=== PATIENT | female | born 1995 | race Asian ===

== ENCOUNTER 2024-07-19 11:50 | Inpatient (IN) ==
[2024-07-19] MEDS ORDERED: LIDOCAINE 1% LOCAL 20 ML VIAL INFIL PRN (12:58)
[2024-07-19] MEDS ORDERED: OXYTOCIN 30 UNITS/NSS 30 UNITS/500 ML BAG IV PRN (12:58)
[2024-07-19 13:39] LABS: Hematocrit (blood only) 32.9 % (37.0-47.0); Mean Corpuscular Hemoglobin 28.3 pg (25.0-34.0); Mean Corpuscular Hgb Conc 33.4 g/dL (32.0-36.0); Mean Corpuscular Volume 84.6 fL (80.0-100.0); Mean Platelet Volume 10.7 fL (9.4-12.4); Platelet Count 255 K/uL (130-400); RDW Coefficient of Variation 14.2 % (11.5-14.5); RDW Standard Deviation 43.3 fL (36.4-46.3); Red Blood Count 3.89 M/uL (4.20-5.40); White Blood Count 7.01 K/ul (4.8-10.8)
[2024-07-19] MEDS: LACTATED RINGER'S 1,000 ML IV PRN (16:38)
--- NOTE | 2024-07-19 16:39 | History & Physical Report ---
Date of Service July 19, 2024 Assessment & Plan (1) Post term over 40 weeks: (2) PROM (premature rupture of membranes): (3) Gestational diabetes: Plan admit, iv, labs. plan pitocin induction given no labor after prom. fhts categ 1. pt open to pain mgmt options and will let us know. Admission and Anticipated Discharge Date Admission Date: July 19, 2024 History of Present Illness Chief Complaint: prom Primary Care Provider: NO PCP 29yo at 40+wks ega presents to LD after PROM at term, confirmed in office. Patient with prom at 7am. Was seen in office and was confirmed rom but cx closed. Since that time has felt more period type cramps. No real pain. PNC c/b 1. GDM diet controlled. PNL rhpos, ri, gbs neg OBH: g1 GYNH: nl paps no stds Allergies Allergy/AdvReac Type Severity Reaction Status Date / Time No Known Allergies Allergy Verified 07/19/24 12:33 Home Medications Medication Instructions Recorded Confirmed Type acetone (urine) test (Ketone Urine #50 ea 05/03/24 07/19/24 Rx Test strips) blood sugar diagnostic (OneTouch #150 ea 05/03/24 07/19/24 Rx Verio test strips) blood-glucose meter (OneTouch #1 ea 05/03/24 07/19/24 Rx Verio Reflect Meter) lancets 33 gauge (OneTouch Delica #150 ea 05/03/24 07/19/24 Rx Plus Lancet) calcium carbonate 500 mg PO DAILY 07/19/24 07/19/24 History cholecalciferol (vitamin D3) 25 20 mcg PO DAILY 07/19/24 07/19/24 History mcg (1,000 unit) tablet (Vitamin D3) vits no.124-ferrous fum 1 tab PO DAILY 07/19/24 07/19/24 History 27 mg iron-folic acid 800 mcg tablet ( Vitamin) Patient History Medical History History of chicken pox Surgical History No history of previous surgery Family History Mother Anemia Sister Anemia Grandmother (Maternal) Leukemia Denies family history of Ovarian cancer Breast cancer Colorectal cancer Social History Smoking Status: Never smoker Do You Dip or Chew Tobacco: No; Hx Alcohol Use: No Hx Substance Use: No Preferred Language: Kiswahili Communication Ability: Effective [employer] Required: No Beliefs That Will Affect Care: None marital status: marital status details: Charles Sultana (30) [phone] Current Living Situation: Spouse Current Living Situation Comment: lives with spouse, no pets current occupational status: employed 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 [employer] Feels Safe at Home: Yes Safety Concerns: Feels Safe At This Time Assistive Devices: None Review of Systems as per Subjective / HPI Physical Exam Constitutional: WD/WN, vitals as above Respiratory: normal respiratory effort, lungs clear to auscultation Cardiovascular: Rate/Rhythm: regular rate and regular rhythm Gastrointestinal (Abdomen): soft gravid nt efw 7-8# Musculoskeletal: no edema nontender calves Neurologic: grossly normal Psychiatric: A+Ox3, euthymic affect Genitourinary: OB Exam Abdomen: + vertex (by US) Manual OB Exam: + cervical dilation (1-2cm), + cervical effacement 50% and + station -2 OB Exam Monitor Tracing: + external FHT monitor used, + external uterine monitor used (q2-5), + category I and + normal FHT variability Results & Data Vital Signs (Past 12 Hours) Vital Signs Temp Pulse Resp BP 07/19/24 15:10 97.7 F 18 07/19/24 15:09 65 07/19/24 15:09 100/61 07/19/24 12:11 98.1 F 20 07/19/24 12:08 82 103/69 Coding Level of Care Code None Diagnoses Post term over 40 weeks O48.0 PROM (premature rupture of membranes) O42.90 Gestational diabetes O24.419
[2024-07-19] MEDS: OXYTOCIN 30 UNITS/NSS 30 UNITS/500 ML BAG IV PRN (16:44)
--- NOTE | 2024-07-19 21:22 | Labor Progress Brief Note ---
Date of Service July 19, 2024 Subjective feeling more pain with ctx. Assessment & Plan (1) Post term over 40 weeks: (2) PROM (premature rupture of membranes): (3) Gestational diabetes: Plan good cx change. c/w pit. bsgs in active labor. fhts categ 1. Admission and Anticipated Discharge Date Admission Date: July 19, 2024 Physical Exam Constitutional: WD/WN, vitals as above Genitourinary: Manual OB Exam: + cervical dilation (2-3cm), + cervical effacement 70% and + station (posterior) -2 OB Exam Monitor Tracing: + external FHT monitor used, + external uterine monitor used (q2-4 pit at 15), + category I and + normal FHT variability Results & Data Vital Signs (Past 12 Hours) Vital Signs Temp Pulse Resp BP 07/19/24 20:01 78 07/19/24 20:01 101/59 L 07/19/24 19:05 97.9 F 20 07/19/24 19:04 73 07/19/24 19:04 105/71 07/19/24 18:48 77 07/19/24 18:48 107/71 07/19/24 17:47 78 07/19/24 17:47 113/71 07/19/24 17:45 16 07/19/24 17:45 97.9 F 16 07/19/24 15:10 97.7 F 18 07/19/24 15:09 65 07/19/24 15:09 100/61 07/19/24 12:11 98.1 F 20 07/19/24 12:08 82 103/69 Coding Level of Care Code None Diagnoses Post term over 40 weeks O48.0 PROM (premature rupture of membranes) O42.90 Gestational diabetes O24.419
[2024-07-19] MEDS ORDERED: diphenhydrAMINE 50 MG/ML VIAL IV PRN (22:03)
[2024-07-19] MEDS ORDERED: LIDOCAINE 2% MPF LOCAL 5 ML VIAL EPI PRN (22:03)
[2024-07-19] MEDS ORDERED: ePHEDrine sulfate 50 MG/ML AMP IV PRN (22:03)
[2024-07-19] MEDS ORDERED: SODIUM CHLORIDE 0.9% PF INJ 10 ML VIAL EPI PRN (22:03)
[2024-07-19] MEDS ORDERED: NALBUPHINE HCL INJ 10 MG/ML AMP IV PRN (22:03)
[2024-07-19] MEDS ORDERED: NALOXONE HCL 0.4 MG/1 ML VIAL/CARP IV PRN (22:03)
[2024-07-19] MEDS ORDERED: NALOXONE HCL 1 MG in SODIUM CHLORIDE 0.9% 1,000 ML IV PRN (22:03)
[2024-07-19] MEDS ORDERED: BUPIVACAINE 0.25% PF 30 ML VIAL EPI PRN (22:03)
[2024-07-19] MEDS ORDERED: ROPIVACAINE 0.5% PF 5 MG/ML 20 ML VIAL EPI PRN (22:03)
[2024-07-19] MEDS ORDERED: fentaNYL citrate PF 100 MCG/2 ML VIAL EPI PRN (22:03)
[2024-07-19] MEDS ORDERED: ONDANSETRON INJ 2 MG/ML 2 ML VIAL IV PRN (22:03)
--- NOTE | 2024-07-19 22:06 | Anesthesiology Consultation ---
Date of Service July 19, 2024 Assessment & Plan (1) Encounter for pre-operative examination: Chart Review Chart Review: Patient NOT seen in Pre Admission Testing and Acceptable Risk for Labor Epidural Consults Requested none History Height/Weight Height: 5 ft 3 in Weight: 64.41 kg Allergies Allergy/AdvReac Type Severity Reaction Status Date / Time No Known Allergies Allergy Verified 07/19/24 12:33 Medications Home Medications Medication Instructions Recorded Confirmed Last Taken acetone (urine) test (Ketone Urine #50 ea 05/03/24 07/19/24 Unknown Test strips) blood sugar diagnostic (OneTouch #150 ea 05/03/24 07/19/24 Unknown Verio test strips) blood-glucose meter (OneTouch #1 ea 05/03/24 07/19/24 Unknown Verio Reflect Meter) lancets 33 gauge (OneTouch Delica #150 ea 05/03/24 07/19/24 Unknown Plus Lancet) calcium carbonate 500 mg PO DAILY 07/19/24 07/19/24 07/18/24 15:00 cholecalciferol (vitamin D3) 25 20 mcg PO DAILY 07/19/24 07/19/24 07/18/24 15:00 mcg (1,000 unit) tablet (Vitamin D3) vits no.124-ferrous fum 1 tab PO DAILY 07/19/24 07/19/24 07/19/24 10:00 27 mg iron-folic acid 800 mcg tablet ( Vitamin) Active Medications Generic Name Dose Route Start Last Admin Trade Name Freq PRN Reason Stop Dose Admin Lactated Ringer's 1,000 mls @ 125 mls/hr 07/19/24 12:58 07/19/24 22:12 Lr IV 07/20/24 12:57 999 mls/hr .Q8H PRN Administration L&D Protocol Protocol Oxytocin 30 units in 500 mls @ 15 mls/hr 07/19/24 16:14 07/19/24 20:45 Pitocin 30 Units/Nss IV 07/21/24 16:13 0.9 units/hr .Q24H PRN 15 mls/hr Labor Induction/Augmentation Titration Protocol 0.9 UNITS/HR Past Medical History Medical History (Updated 07/19/24 @ 22:06 by Jacobo Velazquez MD) Encounter for pre-operative examination History of chicken pox Exercise / Class Metabolic Activity II 4-5 Yardwork/Stairs/Walk up hill Past Family History Family History Mother Anemia Sister Anemia Grandmother (Maternal) Leukemia Denies family history of Ovarian cancer Breast cancer Colorectal cancer Past Surgical History Surgical History No history of previous surgery Past Anesthesia History No Hx of Anesthesia Complications and No Family Hx of Anesthesia Complications Social History Smoking Status: Never smoker Do You Dip or Chew Tobacco: No Hx Alcohol Use: No Hx Substance Use: No Physical Exam Vital Signs Last Vital Signs Temp 36.8 C 07/19/24 21:30 Pulse 72 07/19/24 22:27 Resp 20 07/19/24 19:05 BP 111/71 07/19/24 22:27 Pulse Ox 100 07/19/24 22:26 Testing Laboratory Results 07/19/24 13:15 07/19/24 13:04 POC Glucose 108 H
[2024-07-19] MEDS: fentANYL 2 MCG/ML BUPIVacaine 0.125%-NSS 100ML BAG EPI PRN (22:31)
[2024-07-19] MEDS: BUPIVACAINE 0.25% PF 30 ML VIAL EPI STA (22:31)
[2024-07-19] MEDS: LIDOCAINE 2%/EPINEPHRINE 1:200,000 20 ML PF EPI STA (22:31)
[2024-07-19] MEDS: fentaNYL citrate PF 100 MCG/2 ML VIAL EPI STA (22:31)
[2024-07-19] MEDS: LIDOCAINE 2%/EPINEPHRINE 1:200,000 20 ML PF ONE (22:49)
[2024-07-19] MEDS: SODIUM CHLORIDE 0.9% PF INJ 10 ML VIAL ONE (22:49)
[2024-07-19] MEDS: fentaNYL citrate PF 100 MCG/2 ML VIAL ONE (22:50)
[2024-07-19] MEDS: fentANYL 2 MCG/ML BUPIVacaine 0.125%-NSS 100ML BAG ONE (22:50)
[2024-07-19] MEDS: BUPIVACAINE 0.25% PF 30 ML VIAL ONE (22:50)
--- NOTE | 2024-07-20 00:24 | Labor Progress Brief Note ---
Date of Service July 20, 2024 Subjective came to evaluate pt due to decels noted when doing strip review. deep variable decels x 9min. on arrival in room, pt in knee chest, ivf bolus going, o2 applied and pit off. Fhts improved. Assessment & Plan (1) Post term over 40 weeks: (2) PROM (premature rupture of membranes): Plan will need to allow for in utero resuscitation. if late decels persist will need to proceed to c/s,couple made aware. if deep variables persist, likely cannot restart pitocin to advance labor. IUPC placed and mvu's already inadequate. Admission and Anticipated Discharge Date Admission Date: July 19, 2024 Physical Exam Constitutional: WD/WN, vitals as above Genitourinary: Manual OB Exam: + cervical dilation 4 cm, + cervical effacement (75%) and + station (posterior) -2 OB Exam Monitor Tracing: + external FHT monitor used, + intra-uterine pressure catheter used (iupc placed. ), + category II (deep variables at first x 9-10min), + category III (late decels x 3 ctx now with min variability. ) and + late decelerations present Results & Data Vital Signs (Past 12 Hours) Vital Signs Temp Pulse Resp BP Pulse Ox 07/20/24 00:16 74 99/58 L 100 07/20/24 00:11 69 100 07/20/24 00:06 63 98 07/20/24 00:01 67 104/68 100 07/19/24 23:56 100 07/19/24 23:56 69 07/19/24 23:51 100 07/19/24 23:51 66 07/19/24 23:46 100 07/19/24 23:46 84 07/19/24 23:46 68 07/19/24 23:46 102/56 L 07/19/24 23:41 100 07/19/24 23:41 77 07/19/24 23:36 100 07/19/24 23:36 70 07/19/24 23:31 100 07/19/24 23:31 81 07/19/24 23:30 73 07/19/24 23:30 90/56 L 07/19/24 23:26 100 07/19/24 23:26 72 07/19/24 23:21 100 07/19/24 23:21 61 07/19/24 23:17 65 07/19/24 23:17 95/55 L 07/19/24 23:16 100 07/19/24 23:16 66 07/19/24 23:11 100 07/19/24 23:11 81 07/19/24 23:06 100 07/19/24 23:06 64 07/19/24 23:01 100 07/19/24 23:01 69 07/19/24 22:56 100 07/19/24 22:56 70 07/19/24 22:54 95 H 07/19/24 22:54 101/66 07/19/24 22:52 83 07/19/24 22:52 107/73 07/19/24 22:51 100 07/19/24 22:51 76 07/19/24 22:46 100 07/19/24 22:46 69 07/19/24 22:44 69 07/19/24 22:44 111/71 07/19/24 22:42 70 07/19/24 22:42 106/66 07/19/24 22:41 100 07/19/24 22:41 69 07/19/24 22:40 68 07/19/24 22:40 106/64 07/19/24 22:38 75 07/19/24 22:38 100/64 07/19/24 22:36 100 07/19/24 22:36 73 07/19/24 22:36 92 H 07/19/24 22:36 98/63 L 07/19/24 22:34 74 07/19/24 22:34 101/71 07/19/24 22:32 76 07/19/24 22:32 100/64 07/19/24 22:31 100 07/19/24 22:31 80 07/19/24 22:30 72 07/19/24 22:30 101/68 07/19/24 22:27 72 07/19/24 22:27 111/71 07/19/24 22:26 100 07/19/24 22:26 70 07/19/24 22:21 100 07/19/24 22:21 79 07/19/24 22:16 100 07/19/24 22:16 71 07/19/24 22:11 100 07/19/24 22:11 74 07/19/24 21:30 98.2 F 07/19/24 21:30 70 07/19/24 21:30 121/83 07/19/24 20:01 78 07/19/24 20:01 101/59 L 07/19/24 19:05 97.9 F 20 07/19/24 19:04 73 07/19/24 19:04 105/71 07/19/24 18:48 77 07/19/24 18:48 107/71 07/19/24 17:47 78 07/19/24 17:47 113/71 07/19/24 17:45 16 07/19/24 17:45 97.9 F 16 07/19/24 15:10 97.7 F 18 07/19/24 15:09 65 07/19/24 15:09 100/61 Coding Level of Care Code None Diagnoses Post term over 40 weeks O48.0 PROM (premature rupture of membranes) O42.90
--- NOTE | 2024-07-20 00:48 | Labor Progress Brief Note ---
Date of Service July 20, 2024 Subjective pt comfortable. Assessment & Plan (1) Post term over 40 weeks: (2) PROM (premature rupture of membranes): Plan fhts now categ 1, option to restart pitocin vs. c/s and pt prefers former, which i rec to try. iupc now in place to guide pitocin. if by 1am fhts still categ 1 will restart pit. Admission and Anticipated Discharge Date Admission Date: July 19, 2024 Physical Exam Constitutional: WD/WN, vitals as above Genitourinary: OB Exam Monitor Tracing: + external FHT monitor used, + external uterine monitor used (irreg), + category I and + normal FHT variability (spont accels) Results & Data Vital Signs (Past 12 Hours) Vital Signs Temp Pulse Resp BP Pulse Ox 07/20/24 00:45 100/58 L 07/20/24 00:41 68 100 07/20/24 00:36 76 100 07/20/24 00:31 66 100 07/20/24 00:30 60 94/54 L 07/20/24 00:26 76 100 07/20/24 00:21 96 H 100 07/20/24 00:16 74 99/58 L 100 07/20/24 00:11 69 100 07/20/24 00:06 63 98 07/20/24 00:01 67 104/68 100 07/19/24 23:56 100 07/19/24 23:56 69 07/19/24 23:51 100 07/19/24 23:51 66 07/19/24 23:46 100 07/19/24 23:46 84 07/19/24 23:46 68 07/19/24 23:46 102/56 L 07/19/24 23:41 100 07/19/24 23:41 77 07/19/24 23:36 100 07/19/24 23:36 70 07/19/24 23:31 100 07/19/24 23:31 81 07/19/24 23:30 73 07/19/24 23:30 90/56 L 07/19/24 23:26 100 07/19/24 23:26 72 07/19/24 23:21 100 07/19/24 23:21 61 07/19/24 23:17 65 07/19/24 23:17 95/55 L 07/19/24 23:16 100 07/19/24 23:16 66 07/19/24 23:11 100 07/19/24 23:11 81 07/19/24 23:06 100 07/19/24 23:06 64 07/19/24 23:01 100 07/19/24 23:01 69 07/19/24 22:56 100 07/19/24 22:56 70 07/19/24 22:54 95 H 07/19/24 22:54 101/66 07/19/24 22:52 83 07/19/24 22:52 107/73 07/19/24 22:51 100 07/19/24 22:51 76 07/19/24 22:46 100 07/19/24 22:46 69 07/19/24 22:44 69 07/19/24 22:44 111/71 07/19/24 22:42 70 07/19/24 22:42 106/66 07/19/24 22:41 100 07/19/24 22:41 69 07/19/24 22:40 68 07/19/24 22:40 106/64 07/19/24 22:38 75 07/19/24 22:38 100/64 07/19/24 22:36 100 07/19/24 22:36 73 07/19/24 22:36 92 H 07/19/24 22:36 98/63 L 07/19/24 22:34 74 07/19/24 22:34 101/71 07/19/24 22:32 76 07/19/24 22:32 100/64 07/19/24 22:31 100 07/19/24 22:31 80 07/19/24 22:30 72 07/19/24 22:30 101/68 07/19/24 22:27 72 07/19/24 22:27 111/71 07/19/24 22:26 100 07/19/24 22:26 70 07/19/24 22:21 100 07/19/24 22:21 79 07/19/24 22:16 100 07/19/24 22:16 71 07/19/24 22:11 100 07/19/24 22:11 74 07/19/24 21:30 98.2 F 07/19/24 21:30 70 07/19/24 21:30 121/83 07/19/24 20:01 78 07/19/24 20:01 101/59 L 07/19/24 19:05 97.9 F 20 07/19/24 19:04 73 07/19/24 19:04 105/71 07/19/24 18:48 77 07/19/24 18:48 107/71 07/19/24 17:47 78 07/19/24 17:47 113/71 07/19/24 17:45 16 07/19/24 17:45 97.9 F 16 07/19/24 15:10 97.7 F 18 07/19/24 15:09 65 07/19/24 15:09 100/61 Coding Level of Care Code None Diagnoses Post term over 40 weeks O48.0 PROM (premature rupture of membranes) O42.90
--- NOTE | 2024-07-20 05:36 | Labor Progress Brief Note ---
Date of Service July 20, 2024 Subjective comfortable. Assessment & Plan (1) Post term over 40 weeks: (2) PROM (premature rupture of membranes): (3) Gestational diabetes: Plan discusssed with couple that although cx has changed, remote from delivery, with pit at 9 and inadeq mvus but persistent concerning decelerations, rec proceeding to c/s. couple agrees, questions answered. pit dc'd. anesth and nursery aware. consent reviewed and signed. Admission and Anticipated Discharge Date Admission Date: July 19, 2024 Physical Exam Constitutional: WD/WN, vitals as above Genitourinary: Manual OB Exam: + cervical dilation 5 cm, + cervical effacement 90% and + station -1 OB Exam Monitor Tracing: + external FHT monitor used, + intra-uterine pressure catheter used (inadequate mvus), + category III, + normal FHT variability and + late decelerations present (persistent) Results & Data Vital Signs (Past 12 Hours) Vital Signs Temp Pulse Resp BP Pulse Ox 07/20/24 05:31 83 100 07/20/24 05:30 74 99/54 L 07/20/24 05:26 99 H 100 07/20/24 05:21 74 100 07/20/24 05:16 85 100 07/20/24 05:15 73 100/59 L 07/20/24 05:11 81 100 07/20/24 05:06 73 100 07/20/24 05:01 69 100 07/20/24 05:00 75 92 07/20/24 04:56 81 100 07/20/24 04:51 82 100 07/20/24 04:46 84 100 07/20/24 04:45 72 98/61 L 07/20/24 04:41 70 100 07/20/24 04:36 68 100 07/20/24 04:31 68 100 07/20/24 04:30 88 95/59 L 07/20/24 04:26 69 100 07/20/24 04:21 70 100 07/20/24 04:16 75 100 07/20/24 04:15 93 H 102/64 07/20/24 04:11 71 100 07/20/24 04:06 85 100 07/20/24 04:01 65 100 07/20/24 04:00 97.5 F L 63 86/57 L 07/20/24 03:56 66 100 07/20/24 03:51 85 100 07/20/24 03:46 85 100 07/20/24 03:45 113 H 75/48 L 07/20/24 03:41 103 H 100 07/20/24 03:36 68 100 07/20/24 03:31 65 99 07/20/24 03:29 98 H 89/53 L 07/20/24 03:26 82 98 07/20/24 03:21 66 99 07/20/24 03:16 79 99 07/20/24 03:14 88 90/58 L 07/20/24 03:11 77 99 07/20/24 03:06 61 99 07/20/24 03:01 99 07/20/24 03:01 95 H 07/20/24 03:01 75 93/56 L 07/20/24 02:56 71 98 07/20/24 02:51 64 98 07/20/24 02:46 60 98 07/20/24 02:44 99 H 86/54 L 07/20/24 02:41 79 98 07/20/24 02:36 68 98 07/20/24 02:31 67 99 07/20/24 02:30 64 89/55 L 07/20/24 02:26 69 100 07/20/24 02:21 68 100 07/20/24 02:16 75 100 07/20/24 02:15 93 H 83/57 L 07/20/24 02:11 75 100 07/20/24 02:06 104 H 100 07/20/24 02:01 61 100 07/20/24 02:00 61 90/54 L 07/20/24 01:56 63 100 07/20/24 01:51 64 100 07/20/24 01:46 66 100 07/20/24 01:45 114 H 71/50 L 07/20/24 01:41 96 H 99 07/20/24 01:36 114 H 100 07/20/24 01:31 67 100 07/20/24 01:30 82 89/59 L 07/20/24 01:26 99 H 100 07/20/24 01:21 83 99 07/20/24 01:16 95 H 99 07/20/24 01:15 85 90/65 L 07/20/24 01:11 76 99 07/20/24 01:06 94 H 100 07/20/24 01:01 72 92/59 L 100 07/20/24 00:56 71 100 07/20/24 00:51 83 100 07/20/24 00:46 73 100 07/20/24 00:45 100/58 L 07/20/24 00:41 68 100 07/20/24 00:36 76 100 07/20/24 00:31 66 100 07/20/24 00:30 60 94/54 L 07/20/24 00:26 76 100 07/20/24 00:21 96 H 100 07/20/24 00:16 74 99/58 L 100 07/20/24 00:11 69 100 07/20/24 00:06 63 98 07/20/24 00:01 67 104/68 100 07/19/24 23:56 100 07/19/24 23:56 69 07/19/24 23:51 100 07/19/24 23:51 66 07/19/24 23:46 100 07/19/24 23:46 84 07/19/24 23:46 68 07/19/24 23:46 102/56 L 07/19/24 23:41 100 07/19/24 23:41 77 07/19/24 23:36 100 07/19/24 23:36 70 07/19/24 23:31 100 07/19/24 23:31 81 07/19/24 23:30 98.2 F 07/19/24 23:30 73 07/19/24 23:30 90/56 L 07/19/24 23:26 100 07/19/24 23:26 72 07/19/24 23:21 100 07/19/24 23:21 61 07/19/24 23:17 65 07/19/24 23:17 95/55 L 07/19/24 23:16 100 07/19/24 23:16 66 07/19/24 23:11 100 07/19/24 23:11 81 07/19/24 23:06 100 07/19/24 23:06 64 07/19/24 23:01 100 07/19/24 23:01 69 07/19/24 22:56 100 07/19/24 22:56 70 07/19/24 22:54 95 H 07/19/24 22:54 101/66 07/19/24 22:52 83 07/19/24 22:52 107/73 07/19/24 22:51 100 07/19/24 22:51 76 07/19/24 22:46 100 07/19/24 22:46 69 07/19/24 22:44 69 07/19/24 22:44 111/71 07/19/24 22:42 70 07/19/24 22:42 106/66 07/19/24 22:41 100 07/19/24 22:41 69 07/19/24 22:40 68 07/19/24 22:40 106/64 07/19/24 22:38 75 07/19/24 22:38 100/64 07/19/24 22:36 100 07/19/24 22:36 73 07/19/24 22:36 92 H 07/19/24 22:36 98/63 L 07/19/24 22:34 74 07/19/24 22:34 101/71 07/19/24 22:32 76 07/19/24 22:32 100/64 07/19/24 22:31 100 07/19/24 22:31 80 07/19/24 22:30 72 07/19/24 22:30 101/68 07/19/24 22:27 72 07/19/24 22:27 111/71 07/19/24 22:26 100 07/19/24 22:26 70 07/19/24 22:21 100 07/19/24 22:21 79 07/19/24 22:16 100 07/19/24 22:16 71 07/19/24 22:11 100 07/19/24 22:11 74 07/19/24 21:30 98.2 F 07/19/24 21:30 70 07/19/24 21:30 121/83 07/19/24 20:01 78 07/19/24 20:01 101/59 L 07/19/24 19:05 97.9 F 20 07/19/24 19:04 73 07/19/24 19:04 105/71 07/19/24 18:48 77 07/19/24 18:48 107/71 07/19/24 17:47 78 07/19/24 17:47 113/71 07/19/24 17:45 16 07/19/24 17:45 97.9 F 16 Coding Level of Care Code None Diagnoses Post term over 40 weeks O48.0 PROM (premature rupture of membranes) O42.90 Gestational diabetes O24.419
[2024-07-20] MEDS ORDERED: PHENYLEPHRINE 100MCG/ML 5ML SYR ONE ×2 (05:38→06:29)
[2024-07-20] MEDS ORDERED: DEXAMETHASONE SOD INJ 4 MG/ML VIAL ONE (05:38)
[2024-07-20] MEDS ORDERED: PHENYLEPHRINE HCL 25 MG/250 ML NSS IV ONE (05:38)
[2024-07-20] MEDS ORDERED: ONDANSETRON INJ 2 MG/ML 2 ML VIAL ONE (05:38)
[2024-07-20] MEDS ORDERED: LIDOCAINE 2%/EPINEPHRINE 1:200,000 20 ML PF ONE (05:38)
[2024-07-20] MEDS ORDERED: MoRPHine SULFATE PF 1 MG/ML 10 ML AMP/VIAL ONE (05:42)
[2024-07-20] MEDS ORDERED: METHYLERGONOVINE MALEATE 0.2 MG/ML AMP ONE (06:18)
[2024-07-20] MEDS ORDERED: OXYTOCIN 10 UNITS/ML VIAL ONE (06:26)
[2024-07-20] MEDS ORDERED: oxyCODONE HCL IR 5 MG TAB (IMMEDIATE RELEASE) PO PRN (06:28)
[2024-07-20] MEDS ORDERED: PROMETHAZINE 6.25 MG/50.25 ML BAG IV PRN (06:28)
[2024-07-20] MEDS ORDERED: HYDROmorphone INJ 0.5 MG/0.5 ML SYR IV PRN (06:28)
[2024-07-20] MEDS ORDERED: ONDANSETRON INJ 2 MG/ML 2 ML VIAL IV PRN (06:28)
[2024-07-20] MEDS ORDERED: NALBUPHINE HCL INJ 10 MG/ML AMP IV PRN (06:28)
[2024-07-20] MEDS ORDERED: NALOXONE HCL 1 MG in SODIUM CHLORIDE 0.9% 1,000 ML IV PRN (06:28)
[2024-07-20] MEDS ORDERED: NALOXONE HCL 0.08 MG in SYRINGE 1.8 ML IV PRN (06:28)
[2024-07-20] MEDS ORDERED: ePHEDrine sulfate 50 MG/ML AMP IV PRN (06:28)
[2024-07-20] MEDS ORDERED: diphenhydrAMINE 50 MG/ML VIAL IV PRN (06:28)
[2024-07-20] MEDS ORDERED: NALOXONE HCL 0.4 MG/1 ML VIAL/CARP IV PRN (06:28)
[2024-07-20] MEDS ORDERED: NO NARCOTICS OR SEDATIVES SCH (06:30)
[2024-07-20] MEDS ORDERED: DC INTRASPINAL MORPHINE SCH (06:30)
--- NOTE | 2024-07-20 06:45 | Operative Report ---
Post Operative Report Pre & Post Diagnosis Operation Date: 07/20/24 06:10 Pre-Op Diagnosis: 1. 40+ wks IUP 2. PROM 3. Induction of labor 4. Meconium Stained Fluid 5. Non reassuring Heart Tones Post Op Diagnosis: Same I identified the patient and participated in the time-out.: Yes Procedure Operation Date: 07/20/24 06:10 <No data on this case meets the specified criteria> Primary Low Transverse Section Surgeon Keturah Aponte MD, FACOG Senior Payroll Manager RN Quantitative Blood Loss (QBL) 350 Findings Consistent with Post-Op Diagnosis (viable male apgars 8,9, suspected short umbilical cord. normal uterus, tubes and ovaries bilaterally. anterior fibroid about 2-3cm. ) Fluids 700 Specimens cord blood, placenta Drains hayes Anesthesia Type Labor Epidural Complications none Disposition Accompanied Patient To Recovery: No Disposition: L&D Indications 29yo at term with prom and no labor. Admitted and pitocin induction begun. Was making progress but on 2 occasions late decelerations and variable decelerations that were persistent and given remote from delivery, recommended proceeding with c/s and couple agreed. Initially clear fluid that became meconium stained. Description of Procedure The patient was taken to the operating room and identified. After adequate anesthesia was obtained, she was placed in the supine position with a leftward tilt on the operating table and prepped and draped in the usual sterile fashion. A hayes catheter had already been placed. The knife was used to create a Pfannensteil skin incision that was carried down to the underlying layer of fascia. The fascia was nicked in the midline and this opening was extended laterally using Rodriguez scissors. Odalys clamps were placed on the superior and inferior aspect of the fascial incision tenting it upward and the underlying rectus muscles were dissected off the overlying fascia both sharply and bluntly using Rodriguez scissors. The rectus muscles were bluntly in the midline. The peritoneal cavity was bluntly entered into. This opening was stretched. The bladder blade was placed. The vesicouterine peritoneum was elevated and opened up into and the bladder flap was created digitally and bladder blade was replaced. The knife was used to create a hysterotomy and this opening was stretched. The operators hand was placed through the hysterotomy and the bladder blade was removed. The head was elevated and flexed and with fundal pressure the head was delivered. The shoulders and body were rapidly delivered. The cord was clamped and cut and the infant's mouth and nares were bulb suction. The was handed off to the awaiting pediatricians. Cord blood was obtained. The placenta was manually expressed. The uterus was exteriorized and cleared of all clots and debris. Dilute IV Pitocin was begun but due to some boggy nature of uterus, IM methergine to uterine muscle given. The uterine tone was improving. The hysterotomy was closed in a running interlocking fashion using 0 Vicryl followed by a second imbricating layer of 0 Vicryl. The hysterotomy was hemostatic. The pelvis was irrigated. The uterus was returned to the abdomen. The gutters were cleared of all clots and debris. The hysterotomy was reinspected and noted to be hemostatic. The fascia was then closed in running fashion using 0 Vicryl. The subcutaneous fat was copiously irrigated and reapproximated using 2-0 chromic. The skin was closed in a subcuticular fashion using 4-0 monocryl. At this point the procedure was terminated. The patient was transferred to the recovery room in stable condition. All sponge, lap and needle counts are correct x2. I attest to the content of the Intraoperative Record and any orders documented therein. Any exceptions are noted below. OB Procedure Charges [id number]
--- NOTE | 2024-07-20 06:56 | Anesthesia Procedure Note ---
Date of Service July 20, 2024 Anesthesia Post Epidural Note Vital Signs Vital Signs: Temp Pulse Resp BP Pulse Ox 36.4 C L 79 20 103/55 L 100 07/20/24 04:00 07/20/24 06:52 07/19/24 19:05 07/20/24 06:52 07/20/24 06:51 Pain Intensity Bilateral Lower Abdomen: Pain Intensity: 3 Notes Mental Status: alert / awake / arousable and participated in evaluation Patient Amnestic to Procedure: No Nausea / Vomiting: adequately controlled Pain: adequately controlled Airway Patency, RR, SpO2: stable & adequate BP & HR: stable & adequate Hydration State: stable & adequate Neuraxial Anesthesia: was administered and sensory block is resolving Anesthetic Complications: no major complications apparent and Pt Satisfied with anesthetic care Epidural: Removed without complications and With tip intact
--- NOTE | 2024-07-20 06:57 | Anesthesiology Progress Note ---
Date of Service July 20, 2024 Anesthesia Post Procedure Vital Signs Vital Signs: Temp Pulse Resp BP Pulse Ox 07/20/24 06:52 79 103/55 L 07/20/24 06:51 100 07/20/24 06:51 79 07/20/24 06:51 79 82 L 07/20/24 05:50 68 109/66 07/20/24 05:46 74 100 07/20/24 05:45 66 128/75 07/20/24 05:41 70 100 07/20/24 05:36 95 H 100 07/20/24 05:31 83 100 07/20/24 05:30 74 99/54 L 07/20/24 05:26 99 H 100 07/20/24 05:21 74 100 07/20/24 05:16 85 100 07/20/24 05:15 73 100/59 L 07/20/24 05:11 81 100 07/20/24 05:06 73 100 07/20/24 05:01 69 100 07/20/24 05:00 75 92 07/20/24 04:56 81 100 07/20/24 04:51 82 100 07/20/24 04:46 84 100 07/20/24 04:45 72 98/61 L 07/20/24 04:41 70 100 07/20/24 04:36 68 100 07/20/24 04:31 68 100 07/20/24 04:30 88 95/59 L 07/20/24 04:26 69 100 07/20/24 04:21 70 100 07/20/24 04:16 75 100 07/20/24 04:15 93 H 102/64 07/20/24 04:11 71 100 07/20/24 04:06 85 100 07/20/24 04:01 65 100 07/20/24 04:00 36.4 C L 63 86/57 L 07/20/24 03:56 66 100 07/20/24 03:51 85 100 07/20/24 03:46 85 100 07/20/24 03:45 113 H 75/48 L 07/20/24 03:41 103 H 100 07/20/24 03:36 68 100 07/20/24 03:31 65 99 07/20/24 03:29 98 H 89/53 L 07/20/24 03:26 82 98 07/20/24 03:21 66 99 07/20/24 03:16 79 99 07/20/24 03:14 88 90/58 L 07/20/24 03:11 77 99 07/20/24 03:06 61 99 07/20/24 03:01 99 07/20/24 03:01 95 H 07/20/24 03:01 75 93/56 L 07/20/24 02:56 71 98 07/20/24 02:51 64 98 07/20/24 02:46 60 98 07/20/24 02:44 99 H 86/54 L 07/20/24 02:41 79 98 07/20/24 02:36 68 98 07/20/24 02:31 67 99 07/20/24 02:30 64 89/55 L 07/20/24 02:26 69 100 07/20/24 02:21 68 100 07/20/24 02:16 75 100 07/20/24 02:15 93 H 83/57 L 07/20/24 02:11 75 100 07/20/24 02:06 104 H 100 07/20/24 02:01 61 100 07/20/24 02:00 61 90/54 L 07/20/24 01:56 63 100 07/20/24 01:51 64 100 07/20/24 01:46 66 100 07/20/24 01:45 114 H 71/50 L 07/20/24 01:41 96 H 99 07/20/24 01:36 114 H 100 07/20/24 01:31 67 100 07/20/24 01:30 82 89/59 L 07/20/24 01:26 99 H 100 07/20/24 01:21 83 99 07/20/24 01:16 95 H 99 07/20/24 01:15 85 90/65 L 07/20/24 01:11 76 99 07/20/24 01:06 94 H 100 07/20/24 01:01 72 92/59 L 100 07/20/24 00:56 71 100 07/20/24 00:51 83 100 07/20/24 00:46 73 100 07/20/24 00:45 100/58 L 07/20/24 00:41 68 100 07/20/24 00:36 76 100 07/20/24 00:31 66 100 07/20/24 00:30 60 94/54 L 07/20/24 00:26 76 100 07/20/24 00:21 96 H 100 07/20/24 00:16 74 99/58 L 100 07/20/24 00:11 69 100 07/20/24 00:06 63 98 07/20/24 00:01 67 104/68 100 07/19/24 23:56 100 07/19/24 23:56 69 07/19/24 23:51 100 07/19/24 23:51 66 07/19/24 23:46 100 07/19/24 23:46 84 07/19/24 23:46 68 07/19/24 23:46 102/56 L 07/19/24 23:41 100 07/19/24 23:41 77 07/19/24 23:36 100 07/19/24 23:36 70 07/19/24 23:31 100 07/19/24 23:31 81 07/19/24 23:30 36.8 C 07/19/24 23:30 73 07/19/24 23:30 90/56 L 07/19/24 23:26 100 07/19/24 23:26 72 07/19/24 23:21 100 07/19/24 23:21 61 07/19/24 23:17 65 07/19/24 23:17 95/55 L 07/19/24 23:16 100 07/19/24 23:16 66 07/19/24 23:11 100 07/19/24 23:11 81 07/19/24 23:06 100 07/19/24 23:06 64 07/19/24 23:01 100 07/19/24 23:01 69 07/19/24 22:56 100 07/19/24 22:56 70 07/19/24 22:54 95 H 07/19/24 22:54 101/66 07/19/24 22:52 83 07/19/24 22:52 107/73 07/19/24 22:51 100 07/19/24 22:51 76 07/19/24 22:46 100 07/19/24 22:46 69 07/19/24 22:44 69 07/19/24 22:44 111/71 07/19/24 22:42 70 07/19/24 22:42 106/66 07/19/24 22:41 100 07/19/24 22:41 69 07/19/24 22:40 68 07/19/24 22:40 106/64 07/19/24 22:38 75 07/19/24 22:38 100/64 07/19/24 22:36 100 07/19/24 22:36 73 07/19/24 22:36 92 H 07/19/24 22:36 98/63 L 07/19/24 22:34 74 07/19/24 22:34 101/71 07/19/24 22:32 76 07/19/24 22:32 100/64 07/19/24 22:31 100 07/19/24 22:31 80 07/19/24 22:30 72 07/19/24 22:30 101/68 07/19/24 22:27 72 07/19/24 22:27 111/71 07/19/24 22:26 100 07/19/24 22:26 70 07/19/24 22:21 100 07/19/24 22:21 79 07/19/24 22:16 100 07/19/24 22:16 71 07/19/24 22:11 100 07/19/24 22:11 74 07/19/24 21:30 36.8 C 07/19/24 21:30 70 07/19/24 21:30 121/83 07/19/24 20:01 78 07/19/24 20:01 101/59 L 07/19/24 19:05 36.6 C 20 07/19/24 19:04 73 07/19/24 19:04 105/71 07/19/24 18:48 77 07/19/24 18:48 107/71 07/19/24 17:47 78 07/19/24 17:47 113/71 07/19/24 17:45 16 07/19/24 17:45 36.6 C 16 07/19/24 15:10 36.5 C 18 07/19/24 15:09 65 07/19/24 15:09 100/61 07/19/24 12:11 36.7 C 20 07/19/24 12:08 82 103/69 Pain Intensity Bilateral Lower Abdomen: Pain Intensity: 3 Transfer of Care Handoff Completed per policy Notes Mental Status: alert / awake / arousable and participated in evaluation Patient Amnestic to Procedure: No Nausea / Vomiting: adequately controlled Pain: adequately controlled Airway Patency, RR, SpO2: stable & adequate BP & HR: stable & adequate Hydration State: stable & adequate Neuraxial Anesthesia: was administered and sensory block is resolving Anesthetic Complications: no major complications apparent and Pt Satisfied with anesthetic care
[2024-07-20] MEDS ORDERED: LACTATED RINGER'S 1,000 ML IV SCH (07:00)
[2024-07-20] MEDS: ePHEDrine sulfate 50 MG/ML AMP ONE (07:02)
[2024-07-20] MEDS: ACETAMINOPHEN 500 MG TAB PO SCH (07:02)
[2024-07-20] MEDS: SODIUM CHLORIDE 0.9% PF INJ 10 ML VIAL EPI STA (07:02)
[2024-07-20] MEDS: CITRIC ACID/SODIUM CITRATE 15 ML UDC PO SCH (07:03)
[2024-07-20] MEDS: ceFAZolin 2000MG 2,000 MG/15 ML SYR IV SCH (07:03)
[2024-07-20] MEDS: AZITHROMYCIN 500 MG/255 ML BAG IV SCH (07:03)
[2024-07-20] MEDS ORDERED: MAGNESIUM HYDROXIDE SUSP 30 ML UDC PO PRN (07:04)
[2024-07-20] MEDS ORDERED: CALCIUM CARBONATE 500 MG CHEWABLE TAB PO PRN (07:04)
[2024-07-20] MEDS ORDERED: HYDROCORTISONE ACETATE 25 MG SUPP PR PRN (07:04)
[2024-07-20] MEDS ORDERED: SENNA 8.6 MG TAB PO PRN (07:04)
[2024-07-20] MEDS ORDERED: BENZOCAINE 20% SPRY 85 APPLN/85 GM CAN EXT PRN (07:04)
[2024-07-20] MEDS: ACETAMINOPHEN 325 MG TAB ONE (07:12)
[2024-07-20] MEDS: KETOROLAC 30 MG/ML VIAL IV SCH (07:13)
[2024-07-20] MEDS: KETOROLAC 30 MG/ML VIAL ONE (07:13)
[2024-07-20] MEDS: OXYTOCIN 20 UNITS/LR 1,002 ML IV SCH (09:42)
[2024-07-20] MEDS: FERROUS SULFATE 325 MG TAB PO SCH (10:36)
[2024-07-20] MEDS: DOCUSATE SODIUM 100 MG CAP PO SCH (10:36)
[2024-07-20] MEDS: PRENATAL VITAMIN 1 TAB PO SCH (10:36)
[2024-07-20] MEDS: SIMETHICONE 80 MG CHEW PO SCH (10:36)
[2024-07-20] MEDS: LACTATED RINGER'S 1,000 ML IV SCH ×2 (11:19→11:21)
[2024-07-20] MEDS: DIPHTHER/TETAN/PERTUS Vaccine (Tdap, Adol/Adult) 0.5mL IM ONE (11:20)
[2024-07-20] MEDS: MoRPHine SULFATE PF 1 MG/ML 10 ML AMP/VIAL EPI ONE (11:20)
[2024-07-20] MEDS: CALCIUM CARBONATE 1250MG TAB PO SCH (12:58)
[2024-07-20] MEDS: ACETAMINOPHEN 325 MG TAB PO SCH (12:59)
[2024-07-21] MEDS ORDERED: PROMETHAZINE 12.5 MG/50.5 ML BAG IV PRN (00:29)
[2024-07-21] MEDS ORDERED: diphenhydrAMINE 50 MG/ML VIAL IV PRN (00:29)
[2024-07-21] MEDS ORDERED: oxyCODONE HCL IR 5 MG TAB (IMMEDIATE RELEASE) PO PRN (00:29)
[2024-07-21] MEDS ORDERED: ONDANSETRON INJ 2 MG/ML 2 ML VIAL IV PRN (00:29)
[2024-07-21] MEDS ORDERED: ZOLPIDEM TARTRATE 5 MG TAB PO PRN (00:29)
[2024-07-21] MEDS ORDERED: HYDROmorphone INJ 0.5 MG/0.5 ML SYR IV PRN (00:29)
[2024-07-21] MEDS ORDERED: diphenhydrAMINE Capsule 25 MG CAP PO PRN (00:29)
[2024-07-21] MEDS: IBUPROFEN 600 MG TAB PO SCH (06:36)
[2024-07-21] MEDS ORDERED: KETOROLAC 30 MG/ML VIAL IV PRN (06:54)
--- NOTE | 2024-07-21 08:20 | Obstetrical Progress Note ---
Date of Service July 21, 2024 Assessment & Plan (1) Post term over 40 weeks: POD#1 from 1' CS, recovering normally. Countinue routine care. Subjective Ambulation: ambulating normally Voiding: no voiding problems Passing Gas:: Yes Diet Tolerance:: regular diet Lochia:: Small Feeding Type:: breast feeding Physical Exam Constitutional WD/WN, vitals as above Eyes PERRL, conjunctivae normal, anicteric sclerae Neck normal visual inspection Respiratory normal respiratory effort and able to speak in complete sentences; no respiratory distress and no labored breathing Cardiovascular Rate/Rhythm: regular rate and regular rhythm Extremities: no edema Chest (Breasts) Chest: normal inspection of chest Gastrointestinal (Abdomen) Inspection/Auscultation: abdomen normal to inspection Soft, postgravid Dressing removed, incision c/d/i. Psychiatric A+Ox3, euthymic affect Genitourinary OB Exam Abdomen: + fundal height Fundus: + firm and + relation to umbilicus (fundus just below umbilicus); not tender Results & Data Vital Signs (Past 12 Hours) Vital Signs Temp Pulse Resp BP Pulse Ox O2 Del Method 07/21/24 03:31 97.5 F L 81 16 90/56 L 98 Room Air 07/20/24 23:26 97.7 F 75 16 100/69 98 Room Air 07/20/24 23:00 18 99 07/20/24 22:00 18 98 07/20/24 21:00 18 98 07/20/24 20:22 97.7 F 69 18 102/70 98 Room Air
[2024-07-21 08:37] LABS: Basophils # (auto) 0.02 K/uL (0.00-0.20); Basophils % (auto) 0.1 %; Eosinophils # (auto) 0.15 K/uL (0.00-0.50); Eosinophils % (auto) 1.1 %; Hematocrit (blood only) 24.9 % (37.0-47.0); Hemoglobin 8.3 g/dl (12.0-16.0); Immature Granulocytes # (auto) 0.06 K/uL (0.01-0.20); Immature Granulocytes % (auto) 0.4 %; Lymphocytes # (auto) 2.45 K/uL (1.20-3.40); Mean Corpuscular Hemoglobin 28.7 pg (25.0-34.0); Mean Corpuscular Hgb Conc 33.3 g/dL (32.0-36.0); Mean Corpuscular Volume 86.2 fL (80.0-100.0); Mean Platelet Volume 10.7 fL (9.4-12.4); Monocytes # (auto) 0.84 K/uL (0.11-0.59); Monocytes % (auto) 6.2 %; Neutrophils # (auto) 10.11 K/uL (1.40-6.50); Neutrophils % (auto) 74.2 %; Platelet Count 200 K/uL (130-400); RDW Coefficient of Variation 14.4 % (11.5-14.5); Red Blood Count 2.89 M/uL (4.20-5.40); White Blood Count 13.63 K/ul (4.8-10.8)
[2024-07-21] MEDS: bisacodyL 5 MG TABEC PO SCH (21:01)
[2024-07-22 06:30] LABS: Hematocrit (blood only) 24.4 % (37.0-47.0)
--- NOTE | 2024-07-22 07:05 | Obstetrical Progress Note ---
Date of Service July 22, 2024 Assessment & Plan (1) delivery delivered: Plan 29 years delivered by [facility] at 40+1 week POG. #2POD following Section Both mom and baby doing well. Discharge today as per protocol. Admission and Anticipated Discharge Date Admission Date: July 19, 2024 Supervising Physician Co-Signing Physician Notes Resident Physician Supervision Note: I interviewed and examined the patient. Discussed with Dr. Pineda and agree with findings and plan as documented in the note. Any exceptions or clarifications are listed here: [ ] Documented By: Carole Marti MD, FACOG Subjective 29 years delivered by [facility] at 40+1 week POG. #2POD following delivery No active complains Both mom and baby doing well. Mom Lying comfortable on bed. Pain: Mild, intermittent, manageable on painkillers. Lochia: Moderate Diet: Regular OB diet Poop: Had her Bowel Movement after CS Gas: Aware of passing, no abdominal distension Peeing: Passed Urine after Goldman's removal; denies burning or any discomfort on peeing Ambulation: to Bathroom/ Corridor without any complication Answered her queries. Review of Systems Review of Systems: As per HPI Physical Exam Physical Exam: General: Alert and oriented. No acute distress. CVS: S1 S2+ No murmurs, regular rhythm. Respiratory: CTA bilaterally. No rhonchi, wheezes, or crackles. No increased work of breathing. Abdomen: Bowel sound +. Soft, nontender Uterus: Fundus firm and palpable few cm below the umbilicus. Incision site looks healthy: Dry, No swelling, Erythema Lower extremities: No LE edema. No deep calf pain. Results & Data Vital Signs (Past 12 Hours) Vital Signs Temp Pulse Resp BP Pulse Ox O2 Del Method 07/22/24 00:15 36.4 C L 81 16 88/53 L 98 Room Air 07/21/24 19:45 36.5 C 90 16 99/67 L 99 Room Air Resident Activity Tracking Resident Involvement: Resident Care Provided Care Provided: OB Delivery
[2024-07-22] MEDS: IBUPROFEN 600 MG TAB PO PRN (08:30)
[2024-07-22] MEDS: ACETAMINOPHEN 325 MG TAB PO PRN (16:25)
[2024-07-23 00:46] VITALS: RESP 18
[2024-07-23 06:16] LABS: Hematocrit (blood only) 27.2 % (37.0-47.0); Hemoglobin 8.8 g/dl (12.0-16.0)
--- NOTE | 2024-07-23 06:39 | Obstetrical Progress Note ---
Date of Service July 23, 2024 Assessment & Plan (1) delivery delivered: Plan 31 years delivered by [facility] at 40+1 week POG. #3POD following Section Both mom and baby doing well. Discharge today as per protocol. Admission and Anticipated Discharge Date Admission Date: July 19, 2024 Supervising Physician Co-Signing Physician Notes Resident Physician Supervision Note: I interviewed and examined the patient. Discussed with Dr. Pineda and agree with findings and plan as documented in the note. Any exceptions or clarifications are listed here: POD3 doing well, feels ready for DC home now - instructions reviewed. Documented By: Clarice Berry, DO Subjective 29 years delivered by [facility] at 40+1 week POG. #3POD following delivery No active complains Both mom and baby doing well. Mom Lying comfortable on bed. Pain: Mild, intermittent, manageable on painkillers. Lochia: Moderate Diet: Regular OB diet Poop: Had her Bowel Movement after CS Gas: Aware of passing, no abdominal distension Peeing: Passed Urine after Goldman's removal; denies burning or any discomfort on peeing Ambulation: to Bathroom/ Corridor without any complication Answered her queries. Review of Systems Review of Systems: As per HPI Physical Exam Physical Exam: General: Alert and oriented. No acute distress. CVS: S1 S2+ No murmurs, regular rhythm. Respiratory: CTA bilaterally. No rhonchi, wheezes, or crackles. No increased work of breathing. Abdomen: Bowel sound +. Soft, nontender Uterus: Fundus firm and palpable few cm below the umbilicus. Incision site looks healthy: Dry, No swelling, Erythema Lower extremities: No LE edema. No deep calf pain. Results & Data Vital Signs (Past 12 Hours) Vital Signs Temp Pulse Resp BP Pulse Ox O2 Del Method 07/23/24 00:00 36.3 C L 93 H 18 103/69 98 Room Air Resident Activity Tracking Resident Involvement: Resident Care Provided Care Provided: OB Delivery
[2024-07-23 09:20] VITALS: BP 95/61; TEMP 97.9; O2SAT 99
[2024-07-23 12:28] VITALS: PULSE 81
== END 2024-07-23 16:30 | disposition home or self-care (01) | DRG 788 ==
LOC: 4S1 11:50 → 4E2 07-20 11:06